=== PATIENT | female | born 1950 | race Caucasian/White ===

== ENCOUNTER 2018-09-11 07:46 | Emergency (ER) | payer OTHER ==
[~2018-09-11] VITALS: Ht 154.9 cm; Wt 81.6 kg
[2018-09-11] MEDS ORDERED: LOSARTAN POTASS25 MG PO (08:04)
[2018-09-11] MEDS ORDERED: CYMBALTA30 MG PO (08:05)
== END 2018-09-11 08:51 | disposition home or self-care (01) ==
LOC: ER 07:46
DX: M75.51 Bursitis of right shoulder (principal)